=== PATIENT | female | born 1960 ===

== ENCOUNTER 2016-11-24 19:05 | Emergency (ER) | payer OTHER ==
[2016-11-24 19:05] VITALS: BMI 29.2
--- NOTE | 2016-11-24 20:25 | ED PDOC ---
Arrival/HPI - General Chief Complaint: Upper Extremity Problem/Injury Time Seen by Provider: 11/24/16 19:15 Historian: Patient - History of Present Illness Narrative History of Present Illness (Text): 11/24/16 20:25 A 55 year old female, whose past medical history includes hypertension, presents to the emergency department for left shoulder pain that worsens with movement, which began 3 days ago. The patient reports she is limited to everyday activities such as putting her shirt because the pain in her arm. She denies any chest pain, headaches, fever, abdominal, or any other complaints at this time. Time/Duration: < week (x3 days) Symptom Course: Worsening Quality: Other Activities at Onset: Light Context: Home Past Medical History - Provider Review Nursing Documentation Reviewed: Yes - Tetanus Immunization Tetanus Immunization: Unknown - Reproductive Menopause: Yes - Cardiac Hx Cardiac Disorders: Yes Hx Hypertension: Yes - Pulmonary Hx Respiratory Disorders: No - Neurological Hx Neurological Disorder: No - HEENT Hx HEENT Disorder: Yes Other/Comment: HX: PAROTID MASS - Renal Hx Renal Disorder: No - Endocrine/Metabolic Hx Endocrine Disorders: Yes Hx Hypothyroidism: Yes - Hematological/Oncological Hx Blood Disorders: No - Integumentary Hx Dermatological Disorder: No - Musculoskeletal/Rheumatological Hx Musculoskeletal Disorders: Yes Hx Osteoporosis: Yes - Gastrointestinal Hx Gastrointestinal Disorders: Yes Hx Gall Bladder Disease: Yes (HX: GALLSTONES) - Genitourinary/Gynecological Hx Genitourinary Disorders: No - Psychiatric Hx Psychophysiologic Disorder: No Hx Substance Use: No - Surgical History Other/Comment: HX:GALLSTONES REMOVED "STONES WERE TAKEN OUT ONLY -BY MY STOMACH " - Anesthesia Hx Anesthesia: Yes Hx Anesthesia Reactions: No Hx Malignant Hyperthermia: No - Suicidal Assessment Feels Threatened In Home Enviroment: No Family/Social History - Physician Review Nursing Documentation Reviewed: Yes Family/Social History: Unknown Family HX Smoking Status: Former Smoker Hx Alcohol Use: No Hx Substance Use: No Allergies/Home Meds Allergies/Adverse Reactions: Allergies No Known Allergies Allergy (Verified 11/24/16 19:32) Home Medications: Home Meds Medication Instructions Recorded Confirmed Levothyroxine [Synthroid] 88 mcg PO DAILY 11/24/16 11/24/16 Lisinopril/Hydrochlorothiazide 25 mg PO DAILY 11/24/16 11/24/16 [Lisinopril-Hctz 10-12.5 mg Tab] Review of Systems - Physician Review All systems were reviewed & negative as marked: Yes - Review of Systems Constitutional: absent: Fevers Cardiovascular: absent: Chest Pain Gastrointestinal: absent: Abdominal Pain Musculoskeletal: Other (left shoulder pain) Neurological: absent: Headache Physical Exam Vital Signs Temp Pulse Resp BP Pulse Ox 11/24/16 22:19 73 18 127/77 99 11/24/16 19:05 98.6 F 86 18 136/80 96 - Systems Exam Head: Present: Atraumatic, Normocephalic Pupils: Present: PERRL Extroacular Muscles: Present: EOMI Conjunctiva: Present: Normal Mouth: Present: Moist Mucous Membranes Neck: Present: Normal Range of Motion Respiratory/Chest: Present: Clear to Auscultation, Good Air Exchange. No: Respiratory Distress, Accessory Muscle Use Cardiovascular: Present: Regular Rate and Rhythm, Normal S1, S2. No: Murmurs Abdomen: Present: Normal Bowel Sounds. No: Tenderness, Distention, Peritoneal Signs Back: Present: Normal Inspection Upper Extremity: Present: Normal Inspection, Other (Pain with aduction to the left shoulder ). No: Cyanosis, Edema Lower Extremity: Present: Normal Inspection. No: Edema Neurological: Present: GCS=15, CN II-XII Intact, Speech Normal Skin: Present: Warm, Dry, Normal Color. No: Rashes Psychiatric: Present: Alert, Oriented x 3, Normal Insight, Normal Concentration Medical Decision Making ED Course and Treatment: 11/24/16 20:29 Impression: A 55 year old patient with left shoulder pain. Plan: -- XR left shoulder -- Toradol -- Reassess and disposition Progress Notes: 11/24/16 21:45 Reviewed radiology, XR Left Shoulder shows calcific bursitis. 11/24/16 22:08 On reevaluation the patient feels better and is in no acute distress. I have discussed the results and plan with the patient, who expresses understanding. Patient given the opportunity to ask question, all questions were answered and there is agreement with the plan to discharge the patient home. Patient is stable for discharge. Patient was instructed to follow up with physician/clinic in 1-2 days or return if symptoms persist/worsen or new concerning symptoms arise. Re-evaluation Time: 22:08 Reassessment Condition: Re-examined, Improved - RAD Interpretation Radiology Orders: 11/24/16 19:32 SHOULDER LEFT [RAD] Stat Motor Power Connector: ED Physician - Medication Orders Current Medication Orders: Discontinued Medications Ketorolac Tromethamine (Toradol) 30 mg IM ONCE ONE Stop: 11/24/16 19:32 Last Admin: 11/24/16 20:06 Dose: 30 mg - Scribe Statement The provider has reviewed the documentation as recorded by the Marimar Galvan Provider Scribe Attestation: All medical record entries made by the Garryibe were at my direction and personally dictated by me. I have reviewed the chart and agree that the record accurately reflects my personal performance of the history, physical exam, medical decision making, and the department course for this patient. I have also personally directed, reviewed, and agree with the discharge instructions and disposition. Disposition/Present on Arrival - Present on Arrival Any Indicators Present on Arrival: No History of DVT/PE: No History of Uncontrolled Diabetes: No Urinary Catheter: No History of Decub. Ulcer: No History Surgical Site Infection Following: None - Disposition Have Diagnosis and Disposition been Completed?: Yes Diagnosis: Bursitis of shoulder, left Disposition: HOME/ ROUTINE Disposition Time: 22:09 Condition: GOOD Discharge Instructions (ExitCare): Shoulder Bursitis (ED) Prescriptions: Naproxen [Naprosyn Tab] 375 mg PO BID #12 tab Referrals: Willam Zaman MD [Primary Care Provider] - Follow up with primary Forms: [employer] (Slovenian)
[2016-11-24] MEDS ORDERED: Bupivacaine 0.5% Inj(30mL) IJ STA (21:45)
[2016-11-24] MEDS ORDERED: MethylPREDNISolone 40 mg Vial IM STA (21:46)
[2016-11-24 22:08] VITALS: RESP 18
[2016-11-24 22:19] VITALS: BP 127/77; PULSE 73; TEMP 98.6; O2SAT 99
--- NOTE | 2016-11-25 07:59 | RAD ---
PROCEDURE: Radiographs of the Left Shoulder HISTORY: Pain COMPARISON: No prior. FINDINGS: BONES: Bone alignment and mineralization are normal. There is no acute displaced fracture or bone destruction. JOINTS: There is moderate degenerative osteoarthrosis in the acromioclavicular joint. There is mild degenerative osteoarthrosis in the glenohumeral joint. SOFT TISSUES: NormalThere is a small calcification superior to the greater tuberosity. . OTHER FINDINGS: None. IMPRESSION: 1. No acute fracture or dislocation. 2. Suspect calcific tendinitis.
== END 2016-11-24 22:23 | disposition home or self-care (01) ==
LOC: ED 19:05
DX: M75.52 Bursitis of left shoulder (principal)
CPT/HCPCS: 73030; 96372; 99284; J1885

== ENCOUNTER 2018-06-04 08:00 | Outpatient (CLI) | payer MEDICAID | END 2018-06-04 08:01 | disposition home or self-care (01) | LOC: RAD 08:00 | DX: E04.1 Nontoxic single thyroid nodule (principal) ==

== ENCOUNTER 2018-07-13 10:22 | Outpatient (CLI) | payer MEDICAID | END 2018-07-13 10:23 | disposition home or self-care (01) | LOC: RAD 10:22 ==

== ENCOUNTER 2018-07-21 09:50 | Outpatient (CLI) | payer MEDICAID | END 2018-07-21 09:51 | disposition home or self-care (01) | LOC: RAD 09:50 | DX: Z12.31 Encounter for screening mammogram for malignant neoplasm of breast (principal) ==

== ENCOUNTER 2018-08-18 09:30 | Outpatient (CLI) | payer MEDICAID | END 2018-08-18 09:31 | disposition home or self-care (01) | LOC: RAD 09:30 ==